=== PATIENT | female | born 1985 | race Caucasian/White ===

== ENCOUNTER 2017-07-05 12:49 | Emergency (ER) | payer SELFPAY ==
--- NOTE | 2017-07-05 13:33 | RAD ---
RADIOGRAPH LEFT FOOT THREE VIEWS: DATE: 07-05-17 History: 72-year-old female with persistent post-traumatic left foot pain after fall on 07-03-17. FINDINGS: No periosteal elevation, destructive osseous lesion, fracture, or dislocation. The joint spaces are m aintained without erosions of osteophytes. No radiopaque foreign body or subcutaneous emphysema. Mild soft tissue swelling lateral to the fifth MTP joint. IMPRESSION: 1. Mild soft tissue traumatic contusion around the fifth metatarsophalangeal joint. 2. Otherwise normal. POS: C
== END 2017-07-05 13:45 | disposition home or self-care (01) ==
LOC: SCSER 12:49
DX: S90.32XA Contusion of left foot, initial encounter (principal); F17.210 Nicotine dependence, cigarettes, uncomplicated; W18.30XA Fall on same level, unspecified, initial encounter
CPT/HCPCS: 99406